=== PATIENT | female | born 2000 | race American Indian/Alaskan Native ===

== ENCOUNTER 2024-02-23 21:19 | Emergency (ER) | payer SELFPAY ==
[2024-02-23 21:24] VITALS: BP 129/77
--- NOTE | 2024-02-23 23:06 | ED.GENMED ---
History of Present Illness
General
Chief Complaint: Musculo-Skeletal Complaint
Source: patient
Exam Limitations: none
Time Seen by Provider: 02/23/24 22:18
Nursing documentation reviewed up to this point in time: agreed with
History of Present Illness
History of Present Illness:
24-year-old female presenting to the emergency department today after slipping on a wet floor at work hit her left buttock and her left foot some discomfort with walking since did not hit her head did not lose consciousness no numbness weakness
chest pain or shortness of breath. No abdominal pain.
Review of Systems
Review of Systems
Allergies reviewed?: Yes
All Other Systems: ROS reviewed and negative except as documented in HPI and ROS
Phy Exam
Physical Exam
Physical Exam:
GENERAL: Alert , in no apparent distress
EYE: pupils equal and reactive
NECK: Supple, no significant adenopathy.
ENT: o/p clr, mmm.
CARDIAC: Regular rate and rhythm .
LUNGS: Clear breath sounds bilaterally, no acute respiratory distress, no wheezes/rales/rhonchi
ABDOMEN: Soft, without focal tenderness, no r/g, no cvat
NEUROLOGICAL: Alert and oriented, no focal neuro deficits
SKIN: Warm and dry, skin intact.
MUSCULOSKELETAL: Some mild discomfort throughout the left ankle no focal pain. Good range of motion. No edema, well perfused.
PSYCH: Normal and appropriate interaction.
Course
Orders/Labs/Results
Orders:
Orders
02/23/24 21:29
CR Foot - Left Min 3 Views Urgent
Reason For Exam: fall, injury
Lumbar Spine, 2 or 3 View [CR Lumbar Spine 2 Or 3 Views] Urgent
Comment:
Reason For Exam: fall, injury
02/23/24 23:04
boot [Ortho Boot Left- Treatment] ONCE
Short or tall?: Short
Acetaminophen [Tylenol] 1,000 mg PO NOW STA
Ibuprofen [Motrin] 400 mg PO NOW STA
Vital Signs
Initial and Last Documented VS:
Initial Vital Signs
Temp Pulse Resp BP Pulse Ox
98.3 F 108 20 129/77 99
02/23/24 21:24 12 21:24 02/23/24 21:24 02/23/24 21:24 02/23/24 21:24
Last Documented Vital Signs
Temp Pulse Resp BP Pulse Ox
98.3 F 108 20 129/77 99
02/23/24 21:24 02/23/24 21:24 02/23/24 21:24 02/23/24 21:24 02/23/24 21:24
MDM/Problems Addressed
MDM/Problems Addressed:
24-year-old female presenting to the emergency department today with concerns of left buttock and left comfort after slip and fall. Did not hit her head no leg pain no numbness or weakness. X-rays of the foot and low back without evidence of bone
injury. Patient with likely soft tissue injury. Plan for symptomatic treatment. Stable for discharge. Return precautions given.
*Critical Care Note
Total Time (30-74mins, 75-104mins- exclusive of procedures): Not Applicable
ED Attending Note
-
Portions of this chart may have been created with voice recognition software.� Occasional wrong word or��sound alike� substitutions may have occurred due to the inherent limitations of voice recognition software.
Discharge Plan
Departure
Patient Disposition: Home (Routine Discharge)
Date of Disposition: 02/23/24
Time of Disposition: 23:07
Patient with high blood pressure during this ER visit?: No
Condition: Good
Covid-19: Not Applicable
Discharge Problem:
Foot sprain, Fall
Instructions: Muscle and Bone Pain (DC)
Referrals:
NONE,* [Family Provider] -
Stand Alone Forms: Return to Work
Activity Restrictions/Additional Instructions:
You came to the emergency department today after slip and fall. X-rays did not show any fractures. You likely have soft tissue injuries. Please rest and ice. Return to the emergency department any worsening, new or concerning symptoms.
Interventions
Interventions:
*Risk Screen - Suicide Last Done: 02/23/24 21:24
*General Assessment Last Done: 02/23/24 21:24
*Neglect/Abuse Screening Last Done: 02/23/24 21:24
*ED COVID-19 Vaccine History Last Done: 02/23/24 21:24
ED-Musculoskeletal Assessment Last Done: 02/23/24 22:16
Discharge Date and Time
Print Language: URDU
[2024-02-23] MEDS: MOTRIN 400 MG PO (23:15)
[2024-02-23] MEDS: TYLENOL 1000 MG PO (23:15)
[2024-02-23 23:56] VITALS: BP 135/98
== END 2024-02-23 23:57 | disposition home or self-care (01) ==
LOC: EMR 21:19
PROVIDERS: EMERGENCY PHYSICIAN Student in an Organized Health Care Education/Training Program
DX: S93.609A Unspecified sprain of unspecified foot, initial encounter (principal); W01.0XXA Fall on same level from slipping, tripping and stumbling without subsequent striking against object, initial encounter
CPT/HCPCS: 99283; 72100; 73630